=== PATIENT | male | born 1935 | race Caucasian/White ===

== ENCOUNTER 2017-12-01 19:00 | Inpatient (IN) ==
--- NOTE | 2017-12-01 19:11 | Emergency Department Note ---
Disposition Clinical Impression: Elevated troponin, Acute kidney injury Hypertension Qualifiers: Hypertension type: essential hypertension Qualified Code(s): I10 - Essential ( primary) hypertension Disposition: Admitted As Inpatient Condition: Fair General Adult HPI - General Stated complaint: hypertension Time Seen by Provider: 12/01/17 19:03 Source: patient, EMS Limitations: language barrier - History of Present Illness Pain Scale: 0 - Related Data Home Medications Medication Instructions Recorded Confirmed Aspirin Enteric Coated [Aspirin EC] 81 mg PO DAILY 12/01/17 12/01/17 Atorvastatin [Lipitor] 40 mg PO HS 12/01/17 12/01/17 Benzonatate [Tessalon] 100 mg PO TID PRN 12/01/17 12/01/17 Cholecalciferol (D-3) [Vitamin D] 3,000 unit PO DAILY 12/01/17 12/01/17 Clopidogrel [Plavix] 75 mg PO DAILY 12/01/17 12/01/17 Diclofenac Sodium [Voltaren] 4 gm TP BID PRN 12/01/17 12/01/17 Duloxetine HCl [Cymbalta] 60 mg PO DAILY 12/01/17 12/01/17 Ferrous Sulfate 325 mg PO DAILY 12/01/17 12/01/17 Gabapentin [Neurontin] 400 mg PO BID 12/01/17 12/01/17 Hydrocortisone Rectal CRM 1 appl RC BID PRN 12/01/17 12/01/17 [Proctosol-HC] Lisinopril [Zestril] 10 mg PO HS 12/01/17 12/01/17 Loratadine [Claritin] 10 mg PO DAILY 12/01/17 12/01/17 Magnesium Hydroxide [Milk of 2,400 mg PO AD 12/01/17 12/01/17 Magnesia] Magnesium Oxide [Mag-Ox] 800 mg PO BID 12/01/17 12/01/17 Melatonin [Melatin] 9 mg PO HS 12/01/17 12/01/17 Memantine HCl 10 mg PO BID 12/01/17 12/01/17 Metformin HCl [Metformin HCl ER] 500 mg PO DAILY 12/01/17 12/01/17 Metoprolol [Lopressor] 25 mg PO BID 12/01/17 12/01/17 Miconazole Nitrate [Aloe [place]] 1 appl TP DAILY PRN 12/01/17 12/01/17 Multivitamin-Min/Iron/FA/Vit K 1 each PO DAILY 12/01/17 12/01/17 [Multi-Day Plus Minerals Tablet] OxyCODONE Immed Rel [Roxicodone 5 5 mg PO DAILY PRN 12/01/17 12/01/17 MG] Pantoprazole Sodium [Protonix] 40 mg PO QPM 12/01/17 12/01/17 Sennosides/Docusate Sodium [Senna 2 each PO BID 12/01/17 12/01/17 Plus] Sod Chloride/B-6/Zinc Acet/Ca 5 - 8 spray IR DAILY PRN 12/01/17 12/01/17 [Wound Cleanser] Vitamin E/Aloe Vera [Wound Gel 1 appl TP DAILY PRN 12/01/17 12/01/17 Dressing] Witch Vanesa [Preparation H] 1 each TP DAILY 12/01/17 12/01/17 hydroCHLOROthiazide 12.5 mg PO DAILY 12/01/17 12/01/17 [Hydrochlorothiazide] Allergies Allergy/AdvReac Type Severity Reaction Status Date / Time No Known Allergies Allergy Verified 12/01/17 20:33 Past Medical History - Past Medical History Medical history: Reports: arthritis, DVT, diabetes, GERD, hyperlipidemia, hypertension Psychiatric history: Reports: no psych history - Social History Smoking Status: Never smoker Smokeless Tobacco Status: No Alcohol use: Reports: none Drug use: Reports: none Physical Exam - General Limitations: language barrier General appearance: alert, in no apparent distress Course Vital Signs Temperature 98.0 F 12/01/17 19:04 Pulse Rate 89 12/01/17 19:04 Respiratory Rate 18 12/01/17 19:04 Blood Pressure 185/107 12/01/17 19:04 O2 Sat by Pulse Oximetry 99 12/01/17 19:04 Temperature 98.5 F 12/02/17 19:26 Pulse Rate 94 12/02/17 19:26 Respiratory Rate 16 12/02/17 19:26 Blood Pressure 152/94 12/02/17 19:26 O2 Sat by Pulse Oximetry 96 12/02/17 19:26 Oxygen Delivery Oxygen Delivery Nasal Cannula Medical Decision Making - Lab Data Result diagrams: 12/02/17 03:43 12/02/17 03:43 Lab Results 12/01/17 12/01/17 12/01/17 Range/Units 21:30 21:30 21:37 WBC 9.0 (4.3-11.1) K/mcL RBC 5.24 (4.19-5.50) M/mcL Hgb 15.8 (12.9-16.9) g/dL Hct 46.6 (37.5-50.1) % MCV 88.9 (83.0-100.0) fL MCH 30.2 (28.0-33.3) pg MCHC 33.9 (31.6-35.5) g/dL RDW 14.7 H (11.5-14.5) % Plt Count 218 (140-400) K/mcL MPV 11.4 (9.4-12.4) fL Immature Gran % 0.3 (0-4) % Seg Neutrophils % 75.3 % Lymphocytes % 14.3 % Monocytes % 9.6 % Eosinophils % 0.1 % Basophils % 0.4 % Neutrophils # 6.8 (1.6-8.9) K/mcL Lymphocytes # 1.3 (0.6-4.6) K/mcL Monocytes # 0.9 (0.0-1.3) K/mcL Eosinophils # 0.0 (0.0-0.6) K/mcL Basophils # 0.0 (0.0-0.2) K/mcL PT 12.3 H (9.4-12.1) Seconds INR 1.1 APTT 31.6 (26.0-36.0) Seconds Sodium 138 (136-145) mEq/L Potassium 3.9 (3.5-5.1) mEq/L Chloride 101 (98-107) mEq/L Carbon Dioxide 27 (23-29) mEq/L BUN 21 (8-23) mg/dL Creatinine 1.02 (0.70-1.30) mg/dL Est GFR ( Amer) > 60 (> 60) Est GFR (Non-Af Amer) > 60 (> 60) BUN/Creatinine Ratio 21 (6-26) Glucose 201 H (70-105) mg/dL Calculated Osmolality 295 (280-300) Calcium 9.8 (8.6-10.3) mg/dL Troponin I 0.15 H* (< 0.04) ng/mL Attestation Statement - Attestation Attestation: I examined this patient and my medical decision-making was reviewed with the PROPOSAL COORDINATOR/PA/Advanced Practice Nurse/Resident Physician. I agree with the documented findings, disposition and treatment plan as described except to the extent set forth below. I did see the patient has spoke with him and examined him and did speak with the doctor at the [facility]. The patient is sent over because he had a echocardiogram this morning and his Lopressor was stopped and the patient became tachycardic and when he was seen at the [facility] he had chest discomfort so a troponin was done which came back elevated and the patient was sent here. He currently denies any chest pain or discomfort, shortness of breath or sweating. Patient will be admitted for further evaluation of the elevated troponin but this is likely a type II [place]. The patient will be watched closely on the account executive software sales. 1910
[2017-12-01] MEDS ORDERED: Aspirin 81 MG TAB.CHEW PO ONE (20:11)
--- NOTE | 2017-12-01 20:46 | Emergency Department Note ---
Disposition Clinical Impression: Elevated troponin, Acute kidney injury Hypertension Qualifiers: Hypertension type: unspecified Qualified Code(s): I10 - Essential (primary) hypertension Disposition: Admitted As Inpatient Condition: Fair Time of Disposition: 22:31 General Adult HPI - General Chief complaint: ED Chest Pain Stated complaint: hypertension Time Seen by Provider: 12/01/17 19:03 Source: patient, EMS Mode of arrival: EMS Limitations: language barrier Nursing Notes Reviewed: Yes Vital Signs Reviewed: Yes - History of Present Illness HPI Narrative: Patient is an 82-year-old male with a past medical history of DVT, diabetes, GERD, HLD, and hypertension patient was undergoing a echocardiogram at the urgent care today and due to his elevated heart rate he was escorted to the urgent care. According to his records the patient was told not to take any of his home medications before going to his echo today. He notified the that he has A. fib was pulse was found to be in the 120s. Blood pressure was also elevated. The patient was denying any symptoms at that time. His blood pressure was 150/101. The patient was found to have a troponin of 0.203 therefore he was transferred to [place] [facility]. On arrival the patient is in no acute distress at this time is only concerns are that he has had a cough over the past 5 days which he states has been non-productive. Pain Scale: 0 - Related Data Home Medications Medication Instructions Recorded Confirmed Aspirin Enteric Coated [Aspirin EC] 81 mg PO DAILY 12/01/17 12/01/17 Atorvastatin [Lipitor] 40 mg PO HS 12/01/17 12/01/17 Benzonatate [Tessalon] 100 mg PO TID PRN 12/01/17 12/01/17 Cholecalciferol (D-3) [Vitamin D] 3,000 unit PO DAILY 12/01/17 12/01/17 Clopidogrel [Plavix] 75 mg PO DAILY 12/01/17 12/01/17 Diclofenac Sodium [Voltaren] 4 gm TP BID PRN 12/01/17 12/01/17 Duloxetine HCl [Cymbalta] 60 mg PO DAILY 12/01/17 12/01/17 Ferrous Sulfate 325 mg PO DAILY 12/01/17 12/01/17 Gabapentin [Neurontin] 400 mg PO BID 12/01/17 12/01/17 Hydrocortisone Rectal CRM 1 appl RC BID PRN 12/01/17 12/01/17 [Proctosol-HC] Lisinopril [Zestril] 10 mg PO HS 12/01/17 12/01/17 Loratadine [Claritin] 10 mg PO DAILY 12/01/17 12/01/17 Magnesium Hydroxide [Milk of 2,400 mg PO AD 12/01/17 12/01/17 Magnesia] Magnesium Oxide [Mag-Ox] 800 mg PO BID 12/01/17 12/01/17 Melatonin [Melatin] 9 mg PO HS 12/01/17 12/01/17 Memantine HCl 10 mg PO BID 12/01/17 12/01/17 Metformin HCl [Metformin HCl ER] 500 mg PO DAILY 12/01/17 12/01/17 Metoprolol [Lopressor] 25 mg PO BID 12/01/17 12/01/17 Miconazole Nitrate [Aloe [place]] 1 appl TP DAILY PRN 12/01/17 12/01/17 Multivitamin-Min/Iron/FA/Vit K 1 each PO DAILY 12/01/17 12/01/17 [Multi-Day Plus Minerals Tablet] OxyCODONE Immed Rel [Roxicodone 5 5 mg PO DAILY PRN 12/01/17 12/01/17 MG] Pantoprazole Sodium [Protonix] 40 mg PO QPM 12/01/17 12/01/17 Sennosides/Docusate Sodium [Senna 2 each PO BID 12/01/17 12/01/17 Plus] Sod Chloride/B-6/Zinc Acet/Ca 5 - 8 spray IR DAILY PRN 12/01/17 12/01/17 [Wound Cleanser] Vitamin E/Aloe Vera [Wound Gel 1 appl TP DAILY PRN 12/01/17 12/01/17 Dressing] Witch Vanesa [Preparation H] 1 each TP DAILY 12/01/17 12/01/17 hydroCHLOROthiazide 12.5 mg PO DAILY 12/01/17 12/01/17 [Hydrochlorothiazide] Allergies Allergy/AdvReac Type Severity Reaction Status Date / Time No Known Allergies Allergy Verified 12/01/17 20:33 All systems ED: reviewed and negative except as stated. Review of Systems: As Per HPI Cardiovascular: Denies: chest pain, palpitations, dyspnea on exertion Respiratory: Reports: cough. Denies: dyspnea, wheezes Gastrointestinal: Denies: nausea, vomiting Musculoskeletal: Denies: back pain Past Medical History - Past Medical History Attestation: Yes The following information was validated with the patient. Medical history: Reports: arthritis, DVT, diabetes, GERD, hyperlipidemia, hypertension Psychiatric history: Reports: no psych history - Social History Smoking Status: Never smoker Smokeless Tobacco Status: No Alcohol use: Reports: none Drug use: Reports: none Physical Exam CONSTITUTIONAL: Well-appearing; well-nourished; A&O X 3, in no apparent distress. Blood pressure is 150/110's. Normal rate. HEAD: Normocephalic; atraumatic EYES: PERRL, no scleral icterus NOSE: The nose is normal in appearance without rhinorrhea NECK: No JVD or distended neck veins RESP: Normal chest excursion with respiration; breath sounds clear and equal bilaterally; no wheezes, rhonchi, or rales CARD: Regular rhythm, without murmurs, rub or gallop ABD: Non-distended; non-tender, soft, without rigidity, rebound or guarding,no pulsatile mass CHEST: No pain with palpation SKIN: Normal for age and race; warm and dry without diaphoresis ; no apparent lesions EXTREMITIES: Pulses are 2 plus and equal times 4 extremities, no peripheral edema or calf muscle pain - General Limitations: language barrier General appearance: alert, in no apparent distress Course Course Narrative: The patient had lab work that was done at an outside facility. Troponin results were shown to be 0.203. CK was 638. AST was 73 and felt he was 70. The remainder of the patient's metabolic panel was within normal limits. Creatinine was 1.28 and BUN was 19. CBC was unremarkable for leukocytosis or anemia. The patient takes 12.5mg hydrochlorothiazide, 10 mg lisinopril QHS and is on clopidogrel. Given the patient's history of recent shortness of breath and cough we will also order a chest x-ray which was not done at the outside facility to rule out pneumonia. - Reevaluation(s) Reevaluation #1: The patient's repeat troponin drawn here was 0.15 which is improved from [facility] The patient was given 10mg of lisinopril for his blood pressure. Chest x-ray showed no acute process. Discussed the patient's case with the hospitalist on-call and he agrees to accept the patient. Time: 22:32 Vital Signs Temperature 98.0 F 12/01/17 19:04 Pulse Rate 89 12/01/17 19:04 Respiratory Rate 18 12/01/17 19:04 Blood Pressure 185/107 12/01/17 19:04 O2 Sat by Pulse Oximetry 99 12/01/17 19:04 Temperature 98.0 F 12/01/17 23:31 Pulse Rate 91 12/01/17 23:31 Respiratory Rate 14 12/01/17 23:31 Blood Pressure 159/101 12/01/17 23:31 O2 Sat by Pulse Oximetry 98 12/01/17 23:53 Oxygen Delivery Oxygen Delivery Nasal Cannula Medical Decision Making - Medical Records Medical records reviewed: Yes I reviewed the patient's medical records. - Lab Data Lab results reviewed: Yes I reviewed the patient's lab results. Result diagrams: 12/01/17 21:30 12/01/17 21:30 Lab Results 12/01/17 12/01/17 12/01/17 Range/Units 21:30 21:30 21:37 WBC 9.0 (4.3-11.1) K/mcL RBC 5.24 (4.19-5.50) M/mcL Hgb 15.8 (12.9-16.9) g/dL Hct 46.6 (37.5-50.1) % MCV 88.9 (83.0-100.0) fL MCH 30.2 (28.0-33.3) pg MCHC 33.9 (31.6-35.5) g/dL RDW 14.7 H (11.5-14.5) % Plt Count 218 (140-400) K/mcL MPV 11.4 (9.4-12.4) fL Immature Gran % 0.3 (0-4) % Seg Neutrophils % 75.3 % Lymphocytes % 14.3 % Monocytes % 9.6 % Eosinophils % 0.1 % Basophils % 0.4 % Neutrophils # 6.8 (1.6-8.9) K/mcL Lymphocytes # 1.3 (0.6-4.6) K/mcL Monocytes # 0.9 (0.0-1.3) K/mcL Eosinophils # 0.0 (0.0-0.6) K/mcL Basophils # 0.0 (0.0-0.2) K/mcL PT 12.3 H (9.4-12.1) Seconds INR 1.1 APTT 31.6 (26.0-36.0) Seconds Sodium 138 (136-145) mEq/L Potassium 3.9 (3.5-5.1) mEq/L Chloride 101 (98-107) mEq/L Carbon Dioxide 27 (23-29) mEq/L BUN 21 (8-23) mg/dL Creatinine 1.02 (0.70-1.30) mg/dL Est GFR ( Amer) > 60 (> 60) Est GFR (Non-Af Amer) > 60 (> 60) BUN/Creatinine Ratio 21 (6-26) Glucose 201 H (70-105) mg/dL Calculated Osmolality 295 (280-300) Calcium 9.8 (8.6-10.3) mg/dL Troponin I 0.15 H* (< 0.04) ng/mL - Radiology Data Radiology results reviewed: Yes I reviewed the patient's radiology results. Chest X-Ray 12/01/17 20:10 IMPRESSION: 1. No acute cardiopulmonary disease. D/ / Yoni Camarena MD / Yoni Camarena MD Interpreting Provider: Yoni Camarena MD - EKG Data EKG #1 EKG attestation: Yes I reviewed and interpreted this EKG. EKG results narrative: The patient's EKG shows sinus rhythm with first-degree AV block with occasional PVCs at a rate of 96 bpm. TX is prolonged at 245, QRS is 127 which is a normal limits, QT is 394 and QTc is 447 and these are within normal limits. Patient has no ST elevations, ST depressions or Q waves present. He does have some nonspecific ST changes in the lateral leads. No signs of ischemia.
[2017-12-01 21:55] LABS: Basophils % 0.4 %; Eosinophils % 0.1 %; Hematocrit 46.6 % (37.5-50.1); Hemoglobin 15.8 g/dL (12.9-16.9); Immature Granulocytes % 0.3 % (0-4); Lymphocytes # 1.3 K/mcL (0.6-4.6); Lymphocytes % 14.3 %; Mean Corpuscular HGB Conc 33.9 g/dL (31.6-35.5); Mean Corpuscular Hemoglobin 30.2 pg (28.0-33.3); Mean Corpuscular Volume 88.9 fL (83.0-100.0); Mean Platelet Volume 11.4 fL (9.4-12.4); Monocytes # 0.9 K/mcL (0.0-1.3); Monocytes % 9.6 %; Neutrophils # 6.8 K/mcL (1.6-8.9); Platelet Count 218 K/mcL (140-400); Red Blood Count 5.24 M/mcL (4.19-5.50); Red Cell Distribution Width 14.7 % (11.5-14.5); Segmented Neutrophils % 75.3 %
[2017-12-01 22:12] LABS: BUN/Creatinine Ratio 21 (6-26); Blood Urea Nitrogen 21 mg/dL (8-23); Calcium 9.8 mg/dL (8.6-10.3); Carbon Dioxide 27 mEq/L (23-29); Chloride 101 mEq/L (98-107); Glucose 201 mg/dL (70-105); Osmolality,Calculated 295 (280-300); Potassium 3.9 mEq/L (3.5-5.1); Sodium 138 mEq/L (136-145); eGFR For African Americans > 60 (> 60); eGFR For Non-African Americans > 60 (> 60)
[2017-12-01 22:14] LABS: Troponin I 0.15 ng/mL (< 0.04)
[2017-12-01] MEDS ORDERED: *HR* HYDROcodone/Acet 5/325 mg TABLET PO PRN (22:44)
[2017-12-01] MEDS ORDERED: Acetaminophen 325 MG TABLET PO PRN (22:44)
[2017-12-01] MEDS ORDERED: Ondansetron 4 MG/2 ML VIAL IVP PRN (22:44)
[2017-12-01] MEDS ORDERED: *HR* Promethazine 25 MG/ML VIAL IVP PRN (22:44)
[2017-12-01] MEDS ORDERED: Naloxone 0.4 MG/ML INJ IVP PRN (22:44)
[2017-12-01 22:45] LABS: INR 1.1; Prothrombin Time 12.3 Seconds (9.4-12.1)
[2017-12-01 22:48] LABS: Activated Partial Thrombo Time 31.6 Seconds (26.0-36.0)
--- NOTE | 2017-12-01 23:54 | Internal Med History&Physical ---
Date of Encounter: 12/01/17 Time of Encounter: 23:45 Internal Medicine - H&P: HPI Chief complaint: Generalized weakness and SOB Admitted From: Emergency Dept Plans for Post Hospital Care: Home History of present illness: Mr. Moon is a 82 year old male with known past medical history of DVT, diabetes, GERD, HLD, hypertension and stroke with b/l le weakness who does use cane / walker to get around, lives by himself pt presented to [facility] urgent care today with generalized weakness and ELMORE. Pt did mention from last 2-3 weeks he has been falling so frequently, so his home visiting nurse suggested him to go to urgent care center for further eval. The patient was found to have a troponin of 0.203 therefore he was transferred to [place] [facility] for further eval. Pt denied any CP. He does c/o ELMORE but denied any SOB at resting. Denied any PND and Orthopnea. Past Med Surg Social Fam HX - Past Medical History Medical history: arthritis, atrial fibrillation, DVT, diabetes, GERD, hyperlipidemia, hypertension Psychiatric history: no psych history - Social History Smoking Status: Never smoker Smokeless Tobacco Status: No Alcohol use: none Drug use: none - Family History Father Living Status: Hx Family Cancer: Yes Mother Living Status: Hx Family Cancer: Yes Internal Medicine - H&P: Meds Aspirin Enteric Coated [Aspirin EC] 81 mg PO DAILY 12/01/17 [History] Atorvastatin [Lipitor] 40 mg PO HS 12/01/17 [History] Benzonatate [Tessalon] 100 mg PO TID PRN 12/01/17 [History] Cholecalciferol (D-3) [Vitamin D] 3,000 unit PO DAILY 12/01/17 [History] Clopidogrel [Plavix] 75 mg PO DAILY 12/01/17 [History] Diclofenac Sodium [Voltaren] 4 gm TP BID PRN 12/01/17 [History] Duloxetine HCl [Cymbalta] 60 mg PO DAILY 12/01/17 [History] Ferrous Sulfate 325 mg PO DAILY 12/01/17 [History] Gabapentin [Neurontin] 400 mg PO BID 12/01/17 [History] Hydrocortisone Rectal CRM [Proctosol-HC] 1 appl RC BID PRN 12/01/17 [History] Lisinopril [Zestril] 10 mg PO HS 12/01/17 [History] Loratadine [Claritin] 10 mg PO DAILY 12/01/17 [History] Magnesium Hydroxide [Milk of Magnesia] 2,400 mg PO AD 12/01/17 [History] Magnesium Oxide [Mag-Ox] 800 mg PO BID 12/01/17 [History] Melatonin [Melatin] 9 mg PO HS 12/01/17 [History] Memantine HCl 10 mg PO BID 12/01/17 [History] Metformin HCl [Metformin HCl ER] 500 mg PO DAILY 12/01/17 [History] Metoprolol [Lopressor] 25 mg PO BID 12/01/17 [History] Miconazole Nitrate [Aloe [place]] 1 appl TP DAILY PRN 12/01/17 [History] Multivitamin-Min/Iron/FA/Vit K [Multi-Day Plus Minerals Tablet] 1 each PO DAILY 12/01/17 [History] OxyCODONE Immed Rel [Roxicodone 5 MG] 5 mg PO DAILY PRN 12/01/17 [History] Pantoprazole Sodium [Protonix] 40 mg PO QPM 12/01/17 [History] Sennosides/Docusate Sodium [Senna Plus] 2 each PO BID 12/01/17 [History] Sod Chloride/B-6/Zinc Acet/Ca [Wound Cleanser] 5 - 8 spray IR DAILY PRN [History] Vitamin E/Aloe Vera [Wound Gel Dressing] 1 appl TP DAILY PRN 12/01/17 [History] Witmitesh Vanesa [Preparation H] 1 each TP DAILY 12/01/17 [History] hydroCHLOROthiazide [Hydrochlorothiazide] 12.5 mg PO DAILY 12/01/17 [History] 3 Allergy/AdvReac Type Severity Reaction Status Date / Time No Known Allergies Allergy Verified 12/01/17 20:33 All Systems PM: A 10-system review of systems was performed and is negative for pertinent findings except as documented above in the HPI. Review of systems: All the systems are reviewed everything is benign except the systems and symptoms I mentioned in the history of present illness - Constitutional Vitals: Temp Pulse Resp BP Pulse Ox 98.0 F 91 14 159/101 99 12/01/17 23:31 12/01/17 23:31 12/01/17 23:31 12/01/17 23:31 12/01/17 23:31 General appearance: Present: cooperative, A&O X 3, no acute distress, answers questions appropriately - Head Head exam: Present: atraumatic, normal inspection - Neck Neck exam general surgery: Present: supple - Respiratory Respiratory exam: Present: decreased breath sounds. Absent: rales, respiratory distress, rhonchi, wheezes - Cardiovascular Cardiovascular exam: Present: RRR, +S1, +S2. Absent: systolic murmur, tachycardia - GI/Abdominal GI/Abdominal exam: Present: normal bowel sounds, soft. Absent: rebound, rigid, tenderness - Extremities Exam Extremities exam: Absent: calf tenderness, pedal edema, tenderness - Back Exam Back exam: Absent: CVA tenderness (L), CVA tenderness (R) - Neurological Exam Neurological exam: Present: alert, oriented X3 - Psychiatric Psychiatric exam: Present: normal affect, normal mood - Skin Skin exam: Absent: rash Internal Med - H&P Results - Labs CBC & Chem 7: 12/01/17 21:30 12/01/17 21:30 - Assessment and plan (1) NSTEMI (non-ST elevated myocardial infarction) Current Visit: Yes Status: Acute Assessment and plan: Admit the pt into Tele Reviewed his EKG - Sinus rhythm noticed, with first degree AV block NC-245,. NO ST T changes noticed His initial Trop 0.20 at local urgent care. Now it started trending down - @ 0.15 mostly demand ischemica pt is denied any CP Little concerned for CHF exacerbation will get 2 D Echo in AM Resumed home med ASA, Plavix and BB No need of anti coag now since his Trop trending down and pt is asymptomatic (2) ELMORE (dyspnea on exertion) Current Visit: Yes Status: Acute Assessment and plan: Concerning for mild CHF exacerbation will check BNP Will obtain 2 D Echo in am Will start low dose of lasix 20mg IV Daily (3) CAD (coronary artery disease) Current Visit: Yes Status: Chronic Assessment and plan: resumed all home meds Qualifiers: Coronary Disease-Associated Artery/Lesion type: [place] artery [place] vs. transplanted heart: [place] heart Associated angina: without angina Qualified Code(s): I25.10 - Atherosclerotic heart disease of [place] coronary artery without angina pectoris (4) H/O: CVA (cerebrovascular accident) Current Visit: Yes Status: Acute Assessment and plan: resumed home meds ASA + Plavix + Statin (5) DM2 (diabetes mellitus, type 2) Current Visit: Yes Status: Acute Assessment and plan: held PO meds placed him on ISS Qualifiers: Diabetes mellitus group home insulin use: without group home use Diabetes mellitus complication status: without complication Qualified Code(s): E11.9 - Type 2 diabetes mellitus without complications (6) Hypertension Current Visit: Yes Status: Acute Assessment and plan: Fairly controlled resumed all home meds will give hydralazine IV PRN Qualifiers: Hypertension type: essential hypertension Qualified Code(s): I10 - Essential (primary) hypertension (7) GERD (gastroesophageal reflux disease) Current Visit: Yes Status: Acute Assessment and plan: on PPI Qualifiers: Esophagitis presence: without esophagitis Qualified Code(s): K21.9 - Gastro -esophageal reflux disease without esophagitis (8) Physical deconditioning Current Visit: Yes Status: Acute Assessment and plan: PT / OT eval did mention frequent falls may need SNF placement for short term rehab - Time Spent With Patient Total time spent is greater than 50% in coordination of care (as documented) at patient's floor/unit and/or counseling patient:
[2017-12-02] MEDS ORDERED: Hydrocortisone Rectal 2.5% CRM 28 GM TUBE RC PRN (00:19)
[2017-12-02] MEDS ORDERED: Benzonatate 100 MG CAPSULE PO PRN (00:19)
[2017-12-02] MEDS ORDERED: Diclofenac Sodium [Voltaren] TP PRN (00:19)
[2017-12-02] MEDS ORDERED: Miconazole 2% ointment 114 GM TUBE TP PRN (00:25)
[2017-12-02] MEDS ORDERED: MOM Conc 10 ML UD.LIQ PO PRN (00:30)
[2017-12-02] MEDS: Furosemide 20 MG/2 ML VIAL IVP SCH ×2 (00:48→08:18)
[2017-12-02 05:01] LABS: Basophils % 0.5 %; Eosinophils % 0.1 %; Hematocrit 45.9 % (37.5-50.1); Hemoglobin 15.4 g/dL (12.9-16.9); Immature Granulocytes % 0.4 % (0-4); Lymphocytes # 1.6 K/mcL (0.6-4.6); Lymphocytes % 20.8 %; Mean Corpuscular HGB Conc 33.6 g/dL (31.6-35.5); Mean Corpuscular Hemoglobin 29.8 pg (28.0-33.3); Mean Corpuscular Volume 88.8 fL (83.0-100.0); Mean Platelet Volume 11.3 fL (9.4-12.4); Monocytes % 12.6 %; Neutrophils # 5.2 K/mcL (1.6-8.9); Platelet Count 190 K/mcL (140-400); Red Blood Count 5.17 M/mcL (4.19-5.50); Red Cell Distribution Width 14.9 % (11.5-14.5); Segmented Neutrophils % 65.6 %
[2017-12-02 05:12] LABS: BUN/Creatinine Ratio 21 (6-26); Blood Urea Nitrogen 21 mg/dL (8-23); Calcium 9.8 mg/dL (8.6-10.3); Carbon Dioxide 28 mEq/L (23-29); Chloride 100 mEq/L (98-107); Cholesterol 185 mg/dL (< 200); Glucose 169 mg/dL (70-105); HDL Cholesterol 31 mg/dL (40-59); LDL Cholesterol,Calculated 126 mg/dL (0-99); Magnesium 1.5 mg/dL (1.6-2.6); Osmolality,Calculated 297 (280-300); Potassium 3.4 mEq/L (3.5-5.1); Sodium 140 mEq/L (136-145); Triglycerides 141 mg/dL (< 150); eGFR For African Americans > 60 (> 60); eGFR For Non-African Americans > 60 (> 60)
[2017-12-02 05:15] LABS: Troponin I 0.13 ng/mL (< 0.04)
[2017-12-02] MEDS: *HR* Heparin 5,000 UNIT/ML VIAL SQ SCH ×2 (05:58→18:00)
[2017-12-02] MEDS: Sennosides/Docusate Sodium TABLET PO SCH ×2 (08:17→22:12)
[2017-12-02] MEDS: Multivit/Ca/Min/Fe/FA 1 TAB TABLET PO SCH (08:18)
[2017-12-02] MEDS: Loratadine 10 MG TABLET PO SCH (08:18)
[2017-12-02] MEDS: Magnesium Oxide 400 MG TABLET PO SCH ×2 (08:18→22:12)
[2017-12-02] MEDS: Aspirin Enteric Coated 81 MG Tablet PO SCH (08:18)
[2017-12-02] MEDS: Cholecalciferol (D-3) 1,000 UNIT TABLET PO SCH (08:18)
[2017-12-02] MEDS: Gabapentin 400 MG CAPSULE PO SCH ×2 (08:18→22:11)
--- NOTE | 2017-12-02 12:14 | Cardiology Consult Note ---
Addendum entered and electronically signed by Tom Mckeon CNP 12/02/17 13:10: Discussed with Dr. Monge. No prior ischemic evaluation with multiple risk factors and mild troponin. TTE today. Plan for stress test tomorrow. Original Note: <Tom Mckeon - Last Filed: 12/02/17 12:22> Date of Encounter: 12/02/17 Time of Encounter: 12:14 Assessment and Plan (1) Elevated troponin Current Visit: Yes Status: Acute Troponin 0.203 [facility], then 0.15, 0.13, 0.09 at [facility] in setting of A-Fib RVR and accelerated HTN. Suspect demand ischemia, nondiagnostic for ACS. Pt denies chest pain. Does endorse exertional dyspnea that has worsened recently. Chief complaints are weakness, recent frequent falls. TTE to evaluate structure and function. Further recommendations pending TTE results. Continue ASA, Statin, BB. (2) PAF (paroxysmal atrial fibrillation) Current Visit: Yes Status: Resolved Known hx of PAF. EKG yesterday evening SR. Now A-Fib, but currently rate controlled. EKG obtained at [facility] yesterday A-Fib RVR HR 120, but pt reports he had held all his meds, as instructed prior to echo. BB resumed. Uptitrate as necessary. [id number] is 5 (Age, HTN, CVA). High CVA risk. Currently on ASA and Plavix. Suspect he is not on full anticoagulation due to high falls risk--reported multiple falls in recent weeks. However, this is not confirmed. Currently given his frequent falls, would recommend continuing ASA and Plavix only. Pt aware of increased CVA risk. (3) Hypertension Current Visit: Yes Status: Acute BP was 185/107 on presentation, now better controlled. Continue current antihypertensives and adjust as necessary. Qualifiers: Hypertension type: essential hypertension Qualified Code(s): I10 - Essential (primary) hypertension Discussion w patient/family: The assessment and plan as outlined above was discussed with the patient and/or family members who expressed understanding and agreement. All questions were answered. Thank you for involving us in the care of your patient. Please call with any questions. I will discuss all the above with Dr. Monge and make changes as necessary. History of Present Illness Consult date: 12/02/17 Requesting physician: Najma Sylvester Consult reason: elevated troponin Chief complaint: fatigue, weakness History of present illness: Mr. Moon is a 82 year old male with known PMH of DVT, diabetes, GERD, HLD, HTN , A-Fib, CVA with b/l le weakness who does use cane/walker, presented to [facility] for outpt [facility] yesterday and was sent for further evaluation due to being A-Fib RVR. Known hx of A-Fib and pt states he was told to hold all meds for his testing. Pt reports over the last 2-3 weeks he has been falling frequently, increased weakness, dyspnea. The patient was found to have a troponin of 0.203 therefore he was transferred to [place] ER for further eval. Pt denied any CP. He does c/o ELMORE but denied any SOB at resting. Denied any PND and Orthopnea. Troponin at [facility] 0.15, 0.13, 0.09. BP was 185/107 on admission. Pt denies hx of CAD or PCI. 12 hr tele AVG HR 96, A-Fib. Past Med Surg Social Fam HX - Past Medical History Medical history: arthritis, atrial fibrillation, DVT, diabetes, GERD, hyperlipidemia, hypertension Psychiatric history: no psych history - Social History Smoking Status: Never smoker Smokeless Tobacco Status: No Alcohol use: none Drug use: none - Family History Father Living Status: Hx Family Cancer: Yes Mother Living Status: Hx Family Cancer: Yes Medications and Allergies Aspirin Enteric Coated [Aspirin EC] 81 mg PO DAILY 12/01/17 [History] Atorvastatin [Lipitor] 40 mg PO HS 12/01/17 [History] Benzonatate [Tessalon] 100 mg PO TID PRN 12/01/17 [History] Cholecalciferol (D-3) [Vitamin D] 3,000 unit PO DAILY 12/01/17 [History] Clopidogrel [Plavix] 75 mg PO DAILY 12/01/17 [History] Diclofenac Sodium [Voltaren] 4 gm TP BID PRN 12/01/17 [History] Duloxetine HCl [Cymbalta] 60 mg PO DAILY 12/01/17 [History] Ferrous Sulfate 325 mg PO DAILY 12/01/17 [History] Gabapentin [Neurontin] 400 mg PO BID 12/01/17 [History] Hydrocortisone Rectal CRM [Proctosol-HC] 1 appl RC BID PRN 12/01/17 [History] Lisinopril [Zestril] 10 mg PO HS 12/01/17 [History] Loratadine [Claritin] 10 mg PO DAILY 12/01/17 [History] Magnesium Hydroxide [Milk of Magnesia] 2,400 mg PO AD 12/01/17 [History] Magnesium Oxide [Mag-Ox] 800 mg PO BID 12/01/17 [History] Melatonin [Melatin] 9 mg PO HS 12/01/17 [History] Memantine HCl 10 mg PO BID 12/01/17 [History] Metformin HCl [Metformin HCl ER] 500 mg PO DAILY 12/01/17 [History] Metoprolol [Lopressor] 25 mg PO BID 12/01/17 [History] Miconazole Nitrate [Aloe [place]] 1 appl TP DAILY PRN 12/01/17 [History] Multivitamin-Min/Iron/FA/Vit K [Multi-Day Plus Minerals Tablet] 1 each PO DAILY 12/01/17 [History] OxyCODONE Immed Rel [Roxicodone 5 MG] 5 mg PO DAILY PRN 12/01/17 [History] Pantoprazole Sodium [Protonix] 40 mg PO QPM 12/01/17 [History] Sennosides/Docusate Sodium [Senna Plus] 2 each PO BID 12/01/17 [History] Sod Chloride/B-6/Zinc Acet/Ca [Wound Cleanser] 5 - 8 spray IR DAILY PRN [History] Vitamin E/Aloe Vera [Wound Gel Dressing] 1 appl TP DAILY PRN 12/01/17 [History] Witch Vanesa [Preparation H] 1 each TP DAILY 12/01/17 [History] hydroCHLOROthiazide [Hydrochlorothiazide] 12.5 mg PO DAILY 12/01/17 [History] 3 Allergy/AdvReac Type Severity Reaction Status Date / Time No Known Allergies Allergy Verified 12/01/17 20:33 All Systems Review: The remainder of the systems were reviewed and are negative - Constitutional Constitutional: fatigue, weakness - Cardiovascular Cardiovascular: as per HPI, dyspnea on exertion - Respiratory Respiratory: dyspnea Physical Examination Vital Signs, Last 4 Hours Temp Pulse Resp BP Pulse Ox 12/02/17 11:38 97.6 F 88 16 131/79 97 Vital Signs Temp Pulse Resp BP Pulse Ox 12/02/17 11:38 97.6 F 88 16 131/79 97 12/02/17 07:44 98.5 F 96 14 125/71 99 12/02/17 03:54 98.1 F 94 14 173/81 96 12/01/17 23:53 98 12/01/17 23:31 98.0 F 91 14 159/101 99 12/01/17 23:09 94 16 116/84 98 12/01/17 21:46 98 16 146/113 98 12/01/17 19:04 98.0 F 89 18 185/107 99 Intake and Output 12/01/17 12/02/17 12/02/17 23:59 07:59 15:59 Output Total 400 / 400 500 / 500 Balance -400 / -400 -500 / -500 Output: Urine 400 / 400 500 / 500 Other: Stool Size Moderate Small Stool Consistency soft soft Stool Characteristics Normal for Patient Stool Color Brown Brown # Voids 1 # Bowel Movements 1 1 Weight 101.1 kg General: Conversant, No Apparent Distress HEENT: Atraumatic, Normocephaly, Mucus Membranes Moist Neck: No JVD, Normal carotid pulses Cardiac: Other (irregularly irregular) Lungs: Normal Breath Sounds, No Wheeze, Rales, Rhonchi Neuro: Alert and responsive, No focal deficits noted Abdomen: Soft, Non-Tender Skin: No rashes noted on visualized skin Musculoskeletal: No Chest Wall Tenderness Extremities: No Clubbing, No Cyanosis, No Edema, Normal Pulses Results 12/02/17 03:43 12/02/17 03:43 Lab Results 12/02/17 12/02/17 12/02/17 03:43 03:43 09:22 WBC 7.9 Hgb 15.4 Hct 45.9 Plt Count 190 Sodium 140 Potassium 3.4 L Chloride 100 Carbon Dioxide 28 BUN 21 Creatinine 0.98 Glucose 169 H Calcium 9.8 Magnesium 1.5 L Troponin I 0.13 H* 0.09 H* Short CBC 12/02/17 12/01/17 Range/Units 03:43 21:30 WBC 7.9 9.0 (4.3-11.1) K/mcL Hgb 15.4 15.8 (12.9-16.9) g/dL Hct 45.9 46.6 (37.5-50.1) % Plt Count 190 218 (140-400) K/mcL Neutrophils # 5.2 6.8 (1.6-8.9) K/mcL BMP 12/02/17 12/01/17 Range/Units 03:43 21:30 Sodium 140 138 (136-145) mEq/L Potassium 3.4 L 3.9 (3.5-5.1) mEq/L Chloride 100 101 (98-107) mEq/L Carbon Dioxide 28 27 (23-29) mEq/L BUN 21 21 (8-23) mg/dL Creatinine 0.98 1.02 (0.70-1.30) mg/dL Glucose 169 H 201 H (70-105) mg/dL Calcium 9.8 9.8 (8.6-10.3) mg/dL Cardiac Enzymes 12/02/17 12/02/17 12/01/17 Range/Units 09:22 03:43 21:30 Troponin I 0.09 H* 0.13 H* 0.15 H* (< 0.04) ng/mL Impressions Chest X-Ray 12/01/17 20:10 IMPRESSION: 1. No acute cardiopulmonary disease. D/ / Yoni Camarena MD / Yoni Camarena MD Interpreting Provider: Yoni Camarena MD Active Medications Acetaminophen (Tylenol) 650 mg PO Q6HR PRN PRN Reason: Mild Pain/Fever Stop: 06/02/18 22:45 Hydrocodone Bitart/Acetaminophen (Evans 5-325 Mg) 1 tab PO Q6HR PRN PRN Reason: Moderate Pain Stop: 06/02/18 22:45 Aspirin (Aspirin Ec) 81 mg PO DAILY OLAY[facility]A Stop: 06/03/18 09:01 Last Admin: 12/02/17 08:18 Dose: 81 mg Atorvastatin Calcium (Lipitor) 40 mg PO HS OLAYINKA Stop: 06/03/18 21:01 Benzonatate (Tessalon) 100 mg PO TID PRN PRN Reason: Cough Stop: 06/03/18 00:20 Clopidogrel Bisulfate (Plavix) 75 mg PO DAILY OLAYINKA Stop: 06/03/18 09:01 Last Admin: 12/02/17 08:18 Dose: 75 mg Docusate Sodium (Colace) 100 mg PO BID PRN PRN Reason: Constipation Stop: 06/03/18 09:01 Duloxetine HCl (Cymbalta) 60 mg PO DAILY [facility] Stop: 06/03/18 09:01 Last Admin: 12/02/17 08:17 Dose: 60 mg Ferrous Sulfate (Ferrous Sulfate) 325 mg PO DAILY OLAYINKA Stop: 06/03/18 09:01 Last Admin: 12/02/17 08:18 Dose: 325 mg Furosemide (Lasix) 20 mg IVP DAILY O[facility]A Stop: 06/03/18 00:46 Last Admin: 12/02/17 08:18 Dose: 20 mg Gabapentin (Neurontin) 400 mg PO BID O[facility]A Stop: 06/03/18 09:01 Last Admin: 12/02/17 08:18 Dose: 400 mg Heparin Sodium (Porcine) (Heparin) 5,000 unit SQ Q12HR OLAYINKA Stop: 06/03/18 06:01 Last Admin: 12/02/17 05:58 Dose: 5,000 unit Hydrocortisone (Proctosol-Hc) 1 appl RC BID PRN; Protocol PRN Reason: Hemorrhoids Stop: 06/03/18 00:20 Lisinopril (Zestril) 10 mg PO HS OLAYINKA PRN Reason: Protocol Stop: 06/03/18 21:01 Loratadine (Claritin) 10 mg PO DAILY OLAYINKA PRN Reason: Protocol Stop: 06/03/18 09:01 Last Admin: 12/02/17 08:18 Dose: 10 mg Magnesium Hydroxide (Milk Of Magnesia Conc) 10 ml PO HS PRN PRN Reason: CONSTIPATION Stop: 06/03/18 00:31 Magnesium Oxide (Mag-Ox) 800 mg PO BID OLAYINKA PRN Reason: Protocol Stop: 06/03/18 09:01 Last Admin: 12/02/17 08:18 Dose: 800 mg Melatonin (Melatonin) 9 mg PO HS [facility] Stop: 06/03/18 21:01 Memantine (Namenda) 10 mg PO BID [facility] Stop: 06/03/18 09:01 Last Admin: 12/02/17 08:17 Dose: 10 mg Metoprolol Tartrate (Lopressor) 25 mg PO BID [facility] Stop: 06/03/18 09:01 Last Admin: 12/02/17 08:18 Dose: 25 mg Miconazole (Aloe [place] Antifungal Ointment) 1 appl TP DAILY PRN PRN Reason: Skin Protection Stop: 06/03/18 00:26 Multivitamins/Calcium (Thera M Plus) 1 tab PO DAILY O[facility]A Stop: 06/03/18 09:01 Last Admin: 12/02/17 08:18 Dose: 1 tab Naloxone HCl (Narcan) 0.4 mg IVP Q2MIN PRN PRN Reason: SEE COMMENTS Stop: 06/02/18 22:45 Omeprazole (Prilosec) 20 mg PO QPM [facility] Stop: 06/03/18 18:01 Ondansetron HCl (Zofran) 4 mg IVP Q8HR PRN PRN Reason: Nausea And Vomiting Stop: 06/02/18 22:45 Pharmacy Profile Note (Patient Taking Own Medication) 1 each TP BID PRN PRN Reason: Pain Promethazine HCl (Phenergan) 12.5 mg IVP Q6HR PRN PRN Reason: Nausea And Vomiting Stop: 06/02/18 22:45 Senna/Docusate Sodium (Senna Plus) 2 each PO BID OLAYINKA PRN Reason: Protocol Stop: 06/03/18 09:01 Last Admin: 12/02/17 08:17 Dose: 2 each Vitamin D (Vitamin D) 1,000 unit PO DAILY [facility] Stop: 06/03/18 09:01 Last Admin: 12/02/17 08:18 Dose: 1,000 unit - EKG Interpretation EKG results cardiology: personally reviewed (SR with first degree block), other (12 hr tele AVG HR 94, PAF) Consult Discharge Plan - Plan [facility]errals: [facility]Primary Care Provider[facility] - <Derek Monge - Last Filed: 12/02/17 16:02> Date of Encounter: 12/02/17 - Attending Attestation I have personally performed a face to face evaluation on this patient. I have reviewed and agree with the care plan. History and Exam by me shows: 82-year-old male with multiple cardiac risk factors previous CVA, atrial fibrillation found to be in A. fib with RVR currently better controlled. Mild elevation in troponins currently on the downtrend with complaints of dyspnea on exertion. Hypertensive urgency on arrival however better controlled at this time. No previous ischemic workup in the setting of multiple cardiac risk factors including diabetes. I feel it is reasonable to rule out ischemia with a stress test pending his echocardiogram. Assessment and Plan Discussion w patient/family: The assessment and plan as outlined above was discussed with the patient and/or family members who expressed understanding and agreement. All questions were answered. Thank you for involving us in the care of your patient. Please call with any questions. History of Present Illness History of present illness: Mr. Moon is a 82 year old male All Systems Review: The remainder of the systems were reviewed and are negative Physical Examination Vital Signs, Last 4 Hours Temp Pulse Resp BP Pulse Ox 12/02/17 15:35 97.6 F 93 18 161/84 98 Results 12/02/17 03:43 12/02/17 03:43 Lab Results 12/02/17 12/02/17 12/02/17 03:43 03:43 09:22 WBC 7.9 Hgb 15.4 Hct 45.9 Plt Count 190 Sodium 140 Potassium 3.4 L Chloride 100 Carbon Dioxide 28 BUN 21 Creatinine 0.98 Glucose 169 H Calcium 9.8 Magnesium 1.5 L Troponin I 0.13 H* 0.09 H*
--- NOTE | 2017-12-02 18:36 | Internal Med Progress Note ---
Date of Encounter: 12/02/17 Time of Encounter: 18:34 - Assessment and plan (1) Hypertension Current Visit: Yes Status: Acute Assessment and plan: Better controlled resumed all home meds hydralazine IV PRN Qualifiers: Hypertension type: essential hypertension Qualified Code(s): I10 - Essential (primary) hypertension (2) NSTEMI (non-ST elevated myocardial infarction) Current Visit: Yes Status: Acute Assessment and plan: Sinus rhythm with first degree AV block SC-245,. NO ST T changes noticed Known history of PAF His initial Trop 0.20 at local urgent care. trending down and then up to .29 likely demand ischemica pt continues to deny any CP CHF exacerbation 2 D Echo report pending Continue ASA, Plavix and BB Cardiology consult it and recommending continuing aspirin and Plavix. Patient aware of increased CVA risk per cardiology's note. Stress test scheduled in the a.m. nothing by mouth after midnight (3) H/O: CVA (cerebrovascular accident) Current Visit: Yes Status: Acute Assessment and plan: Continue ASA, Plavix, Statin (4) Physical deconditioning Current Visit: Yes Status: Acute Assessment and plan: PT / OT eval Fall risk, reports frequent falls, fall precautions possible SNF placement for short term rehab (5) CAD (coronary artery disease) Current Visit: Yes Status: Chronic Assessment and plan: resumed home meds Qualifiers: Coronary Disease-Associated Artery/Lesion type: [place] artery [place] vs. 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[employer] insulin use: without nursing home use Diabetes mellitus complication status: without complication Qualified Code(s): E11.9 - Type 2 diabetes mellitus without complications (7) GERD (gastroesophageal reflux disease) Current Visit: Yes Status: Acute Assessment and plan: Continue PPI Qualifiers: Esophagitis presence: without esophagitis Qualified Code(s): K21.9 - Gastro -esophageal reflux disease without esophagitis (8) ELMORE (dyspnea on exertion) Current Visit: Yes Status: Acute Assessment and plan: Concerning for mild CHF exacerbation 2 D Echo report pending Continue low dose of lasix 20mg IV Daily (9) Hypomagnesemia Current Visit: Yes Status: Acute Assessment and plan: replaced and recheck - Time Spent With Patient Total time spent is greater than 50% in coordination of care (as documented) at patient's floor/unit and/or counseling patient: - Subjective Interval history: Patient sitting up in bed in no distress. He is on O2 and denies any dyspnea. He stated he is aware of the plan for tomorrow for a stress test. He has no voiced complaints at this time. Discussed the plan of care and told him we would have more information once he had his stress test completed - Constitutional Vitals: Temp Pulse Resp BP Pulse Ox 97.6 F 93 18 161/84 98 12/02/17 15:35 12/02/17 15:35 12/02/17 15:35 12/02/17 15:35 12/02/17 15:35 General appearance: Present: cooperative, A&O X 3, pleasant, obese, answers questions appropriately - Head Head exam: Present: atraumatic, normocephalic - Eye Eye exam: Present: PERRL, conjuntiva pink, sclera anicteric Pupils: Present: PERRL - Neck Neck exam general surgery: Present: supple, trachea midline. Absent: lymphadenopathy - Respiratory Respiratory exam: Present: decreased breath sounds. Absent: accessory muscle use, rales, rhonchi, wheezes - Cardiovascular Cardiovascular exam: Present: RRR, +S1, +S2. Absent: diastolic murmur, gallop, rubs, systolic murmur - GI/Abdominal GI/Abdominal exam: Present: normal bowel sounds, soft, no peritoneal signs. Absent: distended, tenderness - Extremities Exam Extremities exam: Present: pedal edema, warm, radial pulses palpable and symmetrical. Absent: calf tenderness, cyanotic Additional comments: Trace lower extremity edema - Neurological Exam Neurological exam: Present: alert, CN II-XII intact, oriented X3, no focal deficits. Absent: pronater drift, facial droop, speech deficit - Skin Skin exam: Present: dry, intact, normal color, warm Internal Medicine: Result - Labs CBC & Chem 7: 12/02/17 03:43 12/02/17 03:43 Labs: Short CBC 12/02/17 Range/Units 03:43 WBC 7.9 (4.3-11.1) K/mcL Hgb 15.4 (12.9-16.9) g/dL Hct 45.9 (37.5-50.1) % Plt Count 190 (140-400) K/mcL Neutrophils # 5.2 (1.6-8.9) K/mcL BMP 12/02/17 03:43 Sodium 140 Potassium 3.4 L Chloride 100 Carbon Dioxide 28 BUN 21 Creatinine 0.98 Glucose 169 H Calcium 9.8 Cardiac Enzymes 12/02/17 12/02/17 Range/Units 03:43 09:22 Troponin I 0.13 H* 0.09 H* (< 0.04) ng/mL - ABG Interpretation ABG results: PT/INR, D-dimer PT 12.3 Seconds (9.4-12.1) H 12/01/17 21:37 Consult Discharge Plan - Plan [facility]errals: [facility] [Primary Care Provider] -
[2017-12-02] MEDS ORDERED: Melatonin 3 MG TABLET PO SCH (21:00)
[2017-12-03] MEDS: *HR* Heparin 5,000 UNIT/ML VIAL SQ SCH ×2 (05:08→17:28)
[2017-12-03] MEDS ORDERED: Regadenoson 0.4 MG/5 ML SYRINGE IVP ONE (06:12)
[2017-12-03 07:25] LABS: Hematocrit 44.2 % (37.5-50.1); Hemoglobin 14.4 g/dL (12.9-16.9); Mean Corpuscular HGB Conc 32.6 g/dL (31.6-35.5); Mean Corpuscular Hemoglobin 29.8 pg (28.0-33.3); Mean Corpuscular Volume 91.5 fL (83.0-100.0); Mean Platelet Volume 11.4 fL (9.4-12.4); Platelet Count 181 K/mcL (140-400); Red Blood Count 4.83 M/mcL (4.19-5.50); Red Cell Distribution Width 14.9 % (11.5-14.5)
[2017-12-03 07:36] LABS: BUN/Creatinine Ratio 25 (6-26); Blood Urea Nitrogen 26 mg/dL (8-23); Calcium 9.1 mg/dL (8.6-10.3); Carbon Dioxide 29 mEq/L (23-29); Chloride 101 mEq/L (98-107); Glucose 179 mg/dL (70-105); Magnesium 1.7 mg/dL (1.6-2.6); Osmolality,Calculated 303 (280-300); Potassium 3.7 mEq/L (3.5-5.1); Sodium 142 mEq/L (136-145); eGFR For African Americans > 60 (> 60); eGFR For Non-African Americans > 60 (> 60)
[2017-12-03] MEDS ORDERED: Dextrose Gel 15 GM/37.5 ML TUBE PO PRN ×2 (09:23)
[2017-12-03] MEDS ORDERED: D5% in Water 1,000 ML IVC PRN (09:23)
[2017-12-03] MEDS ORDERED: *HR* Dextrose 50 % in Water (Syg) 50 ML SYRINGE IVP PRN (09:23)
[2017-12-03] MEDS ORDERED: Insulin LISPRO 300 UNITS/3 ML VIAL SQ SCH (09:30)
[2017-12-03] MEDS: Insulin LISPRO 300 UNITS/3 ML VIAL SQ SCH ×2 (10:25→17:28)
[2017-12-03] MEDS: Gabapentin 400 MG CAPSULE PO SCH (11:24)
[2017-12-03] MEDS: Multivit/Ca/Min/Fe/FA 1 TAB TABLET PO SCH (11:24)
[2017-12-03] MEDS: Aspirin Enteric Coated 81 MG Tablet PO SCH (11:24)
[2017-12-03] MEDS: Magnesium Oxide 400 MG TABLET PO SCH (11:25)
[2017-12-03] MEDS: Furosemide 20 MG/2 ML VIAL IVP SCH (11:25)
[2017-12-03] MEDS: Cholecalciferol (D-3) 1,000 UNIT TABLET PO SCH (11:25)
[2017-12-03] MEDS: Sennosides/Docusate Sodium TABLET PO SCH (11:25)
[2017-12-03] MEDS: Loratadine 10 MG TABLET PO SCH (11:25)
[2017-12-03 11:29] LABS: Estimated Average Glucose 206 mg/dl; Hemoglobin A1C 8.8 %
--- NOTE | 2017-12-03 14:54 | Cardiology Progress Note ---
Date of Encounter: 12/03/17 Time of Encounter: 14:51 Assessment and Plan (1) Elevated troponin Current Visit: Yes Status: Acute Troponin 0.203 at [place], then 0.15, 0.13, 0.09 at [facility] in setting of A-Fib RVR and accelerated HTN. Suspect demand ischemia, nondiagnostic for ACS. Pt denies chest pain. Does endorse exertional dyspnea that has worsened recently. Chief complaints are weakness, recent frequent falls. TTE to evaluate structure and function--EF preserved 50-55%, normal wall motion. Stress test resulted--Negative for ischemia or infarct, but frequent ectopy noted. Continue ASA, Statin, BB. Will increase BB to 50mg BID. Cardiology signing off. Reconsult PRN. Follow-up with [facility] cardiology. (2) PAF (paroxysmal atrial fibrillation) Current Visit: Yes Status: Resolved Known hx of PAF. EKG yesterday evening SR. Now A-Fib, but currently rate controlled. EKG obtained at [facility] yesterday A-Fib RVR HR 120, but pt reports he had held all his meds, as instructed prior to echo. BB resumed. Frequent ectopy on stress test. Will increase Lopressor from 25 to 50mg BID. [id number] is 5 (Age, HTN, CVA). High CVA risk. Currently on ASA and Plavix. Suspect he is not on full anticoagulation due to high falls risk--reported multiple falls in recent weeks. However, this is not confirmed. Currently given his frequent falls, would recommend continuing ASA and Plavix only. Pt aware of increased CVA risk. (3) Hypertension Current Visit: Yes Status: Acute BP was 185/107 on presentation, now better controlled. Continue current antihypertensives and adjust as necessary. Increasing BB as above. Qualifiers: Hypertension type: essential hypertension Qualified Code(s): I10 - Essential (primary) hypertension Discussion w patient/family: The assessment and plan as outlined above was discussed with the patient and/or family members who expressed understanding and agreement. All questions were answered. Thank you for involving us in the care of your patient. Please call with any questions. I will discuss all the above with Dr. Monge and make changes as necessary. Subjective Principal diagnosis: Weakness, elevated troponin Interval history: No acute cardiac complaints. Stress test negative for ischemia or infarct. Echo EF preserved. Objective Vital Signs, Last 4 Hours Temp Pulse Resp BP Pulse Ox 12/03/17 11:51 98.0 F 88 14 142/72 96 Vital Signs Temp Pulse Resp BP Pulse Ox 12/03/17 11:51 98.0 F 88 14 142/72 96 12/03/17 09:05 98.3 F 82 16 129/82 94 12/03/17 04:53 98.5 F 88 16 111/73 94 12/02/17 23:41 99.2 F 89 16 149/79 95 12/02/17 19:26 98.5 F 94 16 152/94 96 12/02/17 15:35 97.6 F 93 18 161/84 98 Intake and Output 12/02/17 12/03/17 12/03/17 23:59 07:59 15:59 Output Total 225 / 225 100 / 100 Balance -225 / -225 -100 / -100 Output: Urine 100 / 100 100 / 100 Catheter 125 / 125 Other: Weight 100 kg Blood Glucose* 181 165 Patient Weight 12/03/17 23:59 Weight 100 kg General: Conversant, No Apparent Distress HEENT: Atraumatic, Normocephaly, Mucus Membranes Moist Neck: No JVD, Normal carotid pulses Cardiac: Other (irregular) Lungs: Other (diminished) Neuro: Alert and responsive, No focal deficits noted Abdomen: Soft, Non-Tender Skin: No rashes noted on visualized skin Musculoskeletal: No Chest Wall Tenderness Extremities: No Clubbing, No Cyanosis, No Edema, Normal Pulses Results 12/03/17 06:27 12/03/17 06:27 Lab Results 12/03/17 12/03/17 12/03/17 06:27 06:27 06:27 WBC 6.1 Hgb 14.4 Hct 44.2 Plt Count 181 Sodium 142 Potassium 3.7 Chloride 101 Carbon Dioxide 29 BUN 26 H Creatinine 1.02 Glucose 179 H Calcium 9.1 Magnesium 1.7 B-Natriuretic Peptide 36 Short CBC 12/03/17 Range/Units 06:27 WBC 6.1 (4.3-11.1) K/mcL Hgb 14.4 (12.9-16.9) g/dL Hct 44.2 (37.5-50.1) % Plt Count 181 (140-400) K/mcL BMP 12/03/17 Range/Units 06:27 Sodium 142 (136-145) mEq/L Potassium 3.7 (3.5-5.1) mEq/L Chloride 101 (98-107) mEq/L Carbon Dioxide 29 (23-29) mEq/L BUN 26 H (8-23) mg/dL Creatinine 1.02 (0.70-1.30) mg/dL Glucose 179 H (70-105) mg/dL Calcium 9.1 (8.6-10.3) mg/dL Active Medications Acetaminophen (Tylenol) 650 mg PO Q6HR PRN PRN Reason: Mild Pain/Fever Stop: 06/02/18 22:45 Hydrocodone Bitart/Acetaminophen ([place] 5-325 Mg) 1 tab PO Q6HR PRN PRN Reason: Moderate Pain Stop: 06/02/18 22:45 Aspirin (Aspirin Ec) 81 mg PO DAILY OLAYINKA Stop: 06/03/18 09:01 Last Admin: 12/03/17 11:24 Dose: 81 mg Atorvastatin Calcium (Lipitor) 40 mg PO HS OLAYINKA Stop: 06/03/18 21:01 Last Admin: 12/02/17 22:11 Dose: 40 mg Benzonatate (Tessalon) 100 mg PO TID PRN PRN Reason: Cough Stop: 06/03/18 00:20 Clopidogrel Bisulfate (Plavix) 75 mg PO DAILY OLAYINKA Stop: 06/03/18 09:01 Last Admin: 12/03/17 11:25 Dose: 75 mg Dextrose/Water (Dextrose 50% (Syg)) 25 ml IVP AD PRN PRN Reason: Hypoglycemia Stop: 06/04/18 09:24 Docusate Sodium (Colace) 100 mg PO BID PRN PRN Reason: Constipation Stop: 06/03/18 09:01 Duloxetine HCl (Cymbalta) 60 mg PO DAILY OLAYINKA Stop: 06/03/18 09:01 Last Admin: 12/03/17 11:25 Dose: 60 mg Ferrous Sulfate (Ferrous Sulfate) 325 mg PO DAILY OLAYINKA Stop: 06/03/18 09:01 Last Admin: 12/03/17 11:25 Dose: 325 mg Furosemide (Lasix) 20 mg IVP DAILY OLAYINKA Stop: 06/03/18 00:46 Last Admin: 12/03/17 11:25 Dose: 20 mg Gabapentin (Neurontin) 400 mg PO BID OLAYINKA Stop: 06/03/18 09:01 Last Admin: 12/03/17 11:24 Dose: 400 mg Glucagon (Glucagen) 1 mg IM ONCE PRN PRN Reason: Hypoglycemia Stop: 06/04/18 09:24 Glucose (Gluctose) 15 gm PO ONCE PRN PRN Reason: Hypoglycemia Stop: 06/04/18 09:24 Glucose (Gluctose) 30 gm PO ONCE PRN PRN Reason: Hypoglycemia Stop: 06/04/18 09:24 Heparin Sodium (Porcine) (Heparin) 5,000 unit SQ Q12HR OLAYINKA Stop: 06/03/18 06:01 Last Admin: 12/03/17 05:08 Dose: 5,000 unit Hydrocortisone (Proctosol-Hc) 1 appl RC BID PRN; Protocol PRN Reason: Hemorrhoids Stop: 06/03/18 00:20 Dextrose (Dextrose 5%) 1,000 mls @ 100 mls/hr IVC .Q10H PRN PRN Reason: HYPOGLYCEMIA Stop: 06/04/18 09:24 Insulin Human Lispro (Humalog) 0 units SQ HS OLAYINKA PRN Reason: Protocol Stop: 06/04/18 09:31 Last Admin: 12/03/17 12:55 Dose: Not Given Insulin Human Lispro (Humalog) 0 units SQ TIDAC OLAYINKA PRN Reason: Protocol Stop: 06/04/18 11:31 Last Admin: 12/03/17 10:25 Dose: 4 units Lisinopril (Zestril) 10 mg PO HS OLAYINKA PRN Reason: Protocol Stop: 06/03/18 21:01 Last Admin: 12/02/17 22:12 Dose: 10 mg Loratadine (Claritin) 10 mg PO DAILY OLAYINKA PRN Reason: Protocol Stop: 06/03/18 09:01 Last Admin: 12/03/17 11:25 Dose: 10 mg Magnesium Hydroxide (Milk Of Magnesia Conc) 10 ml PO HS PRN PRN Reason: CONSTIPATION Stop: 06/03/18 00:31 Magnesium Oxide (Mag-Ox) 800 mg PO BID OLAYINKA PRN Reason: Protocol Stop: 06/03/18 09:01 Last Admin: 12/03/17 11:25 Dose: 800 mg Melatonin (Melatonin) 9 mg PO HS OLAYINKA Stop: 06/03/18 21:01 Last Admin: 12/02/17 22:11 Dose: 9 mg Memantine (Namenda) 10 mg PO BID [facility] Stop: 06/03/18 09:01 Last Admin: 12/03/17 11:24 Dose: 10 mg Metoprolol Tartrate (Lopressor) 25 mg PO BID [facility] Stop: 06/03/18 09:01 Last Admin: 12/03/17 11:25 Dose: 25 mg Miconazole (Aloe [place] Antifungal Ointment) 1 appl TP DAILY PRN PRN Reason: Skin Protection Stop: 06/03/18 00:26 Multivitamins/Calcium (Thera M Plus) 1 tab PO DAILY OLAYINKA Stop: 06/03/18 09:01 Last Admin: 12/03/17 11:24 Dose: 1 tab Naloxone HCl (Narcan) 0.4 mg IVP Q2MIN PRN PRN Reason: SEE COMMENTS Stop: 06/02/18 22:45 Omeprazole (Prilosec) 20 mg PO QPM [facility] Stop: 06/03/18 18:01 Last Admin: 12/02/17 18:00 Dose: 20 mg Ondansetron HCl (Zofran) 4 mg IVP Q8HR PRN PRN Reason: Nausea And Vomiting Stop: 06/02/18 22:45 Pharmacy Profile Note (Patient Taking Own Medication) 1 each TP BID PRN PRN Reason: Pain Promethazine HCl (Phenergan) 12.5 mg IVP Q6HR PRN PRN Reason: Nausea And Vomiting Stop: 06/02/18 22:45 Senna/Docusate Sodium (Senna Plus) 2 each PO BID OLAYINKA PRN Reason: Protocol Stop: 06/03/18 09:01 Last Admin: 12/03/17 11:25 Dose: 2 each Vitamin D (Vitamin D) 1,000 unit PO DAILY [facility] Stop: 06/03/18 09:01 Last Admin: 12/03/17 11:25 Dose: 1,000 unit - Imaging and Cardiology Stress Test: report reviewed Echo: report reviewed - EKG Interpretation EKG results cardiology: other (12 hr tele AVG HR 95, PAF) Consult Discharge Plan - Plan [facility]errals: [facility] [Primary Care Provider] -
--- NOTE | 2017-12-03 15:46 | Discharge Summary ---
- NOTES TO OUTPATIENT PROVIDER Notes to Outpatient Provider: Cardiac stress test and echocardiogram performed. Cardiology saw the patient. Recommend follow-up with [place] cardiology. Orders not resulted at time of discharge: Pending orders 12/02/17 13:11 NM jacek perf SPECT multi [NM] Routine Date of Encounter: 12/03/17 Time of Encounter: 15:44 - Discharge Diagnosis (1) Hypertension Priority: Primary Status: Chronic Comments: Blood pressure now with better control. Continue current antihypertensive. Beta angel dose was increased. Qualifiers: Hypertension type: essential hypertension Qualified Code(s): I10 - Essential (primary) hypertension (2) NSTEMI (non-ST elevated myocardial infarction) Priority: Primary Status: Acute Comments: Troponin 0.203 at the [place] been 0.1 5.13 and 0.09 in the setting of A. fib with rapid ventricular response and accelerated hypertension. Suspect demand ischemia, nondiagnostic for ACS. Patient did have a stress test which was negative for ischemia or infarct. (3) H/O: CVA (cerebrovascular accident) Priority: Primary Status: Chronic (4) Physical deconditioning Priority: Primary Status: Chronic (5) CAD (coronary artery disease) Priority: Primary Status: Chronic Comments: Stress test resulted in negative for ischemia or infarct but frequent ectopy was noted. Continue aspirin, statin, beta angel which has been increased to 50 mg twice a day by cardiology Follow-up with [facility] cardiology Qualifiers: Coronary Disease-Associated Artery/Lesion type: [place] artery [place] vs. transplanted heart: [place] heart Associated angina: without angina Qualified Code(s): I25.10 - Atherosclerotic heart disease of [place] coronary artery without angina pectoris (6) DM2 (diabetes mellitus, type 2) Priority: Primary Status: Chronic Comments: resume home regime Qualifiers: Diabetes mellitus skilled nursing insulin use: without skilled nursing use Diabetes mellitus complication status: without complication Qualified Code(s): E11.9 - Type 2 diabetes mellitus without complications (7) GERD (gastroesophageal reflux disease) Priority: Primary Status: Chronic Comments: continue home medication Qualifiers: Esophagitis presence: without esophagitis Qualified Code(s): K21.9 - Gastro -esophageal reflux disease without esophagitis (8) ELMORE (dyspnea on exertion) Priority: Primary Status: Chronic Comments: patient on room air (9) Hypomagnesemia Priority: Primary Status: Acute Comments: replaced (10) PAF (paroxysmal atrial fibrillation) Priority: Primary Status: Chronic Comments: Known history of proximal atrial fibrillation. EKG on admission showed sinus rhythm. Now in atrial fib but rate controlled. EKG at [place] yesterday was A. fib with rapid rapid ventricular response with a heart rate 120s but the patient had reported he had held all his meds as instructed to prior to obtaining an echocardiogram. Patient had frequent ectopy on his stress test. Lopressor increased from 25-50 mg twice a day Currently on aspirin and Plavix and not on full anticoagulation secondary to high fall risk. Patient reports multiple falls in recent weeks. (11) Falls frequently Priority: Primary Status: Chronic Comments: Follow-up precautions (12) Weakness Priority: Primary Status: Chronic Comments: PT OT at home with current [facility] Hospital course: Mr. Moon is a 82 year old male who has a history of DVT, diabetes mellitus type 2, GERD, hyperlipidemia, hypertension, and stroke with bilateral lower extremity weakness disease the cane or walker to ambulate. He presented to the [place] urgent care with generalized weakness and dyspnea on exertion. He had stated he was falling over the last 2-3 weeks so his visiting nurses suggested he go to the urgent care for further evaluation. He was found to have a troponin of 0.203 and was transferred to [place] [facility]. He has a known history of proximal atrial fibrillation as well. He has [facility]. Troponins were trended at 0.15, 0.13, 0.09 in the setting of A. fib with rapid ventricular response and accelerated hypertension. He had not taken his beta angel secondary to having an echocardiogram completed. He had a stress test completed which showed no infarct or ischemia. He had a echo that showed a preserved EF of 50-55% and normal wall motion. His beta angel was increased to 50 mg twice a day and he was deemed ready for discharge. His blood pressure was controlled on his present medication regime. He is currently in a sinus rhythm, his atrial fib was at a controlled rate within noted here. PT OT evaluation recommends home PT OT which has been ordered. He will resume his home medications, he has no questions and is ready for discharge. Discharge discussed with: patient, nurse, case management - Time Spent with Patient Total time spent providing and/or coordinating discharge services: Less than 30 minutes - Discharge Medications Prescriptions: Metoprolol [Lopressor] 50 mg PO BID #60 tablet Home Medications: Aspirin Enteric Coated [Aspirin EC] 81 mg PO DAILY 12/01/17 [History] Atorvastatin [Lipitor] 40 mg PO HS 12/01/17 [History] Benzonatate [Tessalon] 100 mg PO TID PRN 12/01/17 [History] Cholecalciferol (D-3) [Vitamin D] 3,000 unit PO DAILY 12/01/17 [History] Clopidogrel [Plavix] 75 mg PO DAILY 12/01/17 [History] Diclofenac Sodium [Voltaren] 4 gm TP BID PRN 12/01/17 [History] Duloxetine HCl [Cymbalta] 60 mg PO DAILY 12/01/17 [History] Ferrous Sulfate 325 mg PO DAILY 12/01/17 [History] Gabapentin [Neurontin] 400 mg PO BID 12/01/17 [History] Hydrocortisone Rectal CRM [Proctosol-Hc] 1 appl RC BID PRN 12/01/17 [History] Lisinopril [Zestril] 10 mg PO HS 12/01/17 [History] Loratadine [Claritin] 10 mg PO DAILY 12/01/17 [History] Magnesium Hydroxide [Milk of Magnesia] 2,400 mg PO AD 12/01/17 [History] Magnesium Oxide [Mag-Ox] 800 mg PO BID 12/01/17 [History] Melatonin [Melatin] 9 mg PO HS 12/01/17 [History] Memantine HCl 10 mg PO BID 12/01/17 [History] Metformin HCl [Metformin HCl ER] 500 mg PO DAILY 12/01/17 [History] Miconazole Nitrate [Aloe [place]] 1 appl TP DAILY PRN 12/01/17 [History] Multivitamin-Min/Iron/FA/Vit K [Multi-Day Plus Minerals Tablet] 1 each PO DAILY 12/01/17 [History] OxyCODONE Immed Rel [Roxicodone 5 MG] 5 mg PO DAILY PRN 12/01/17 [History] Pantoprazole Sodium [Protonix] 40 mg PO QPM 12/01/17 [History] Sennosides/Docusate Sodium [Senna Plus] 2 each PO BID 12/01/17 [History] Sod Chloride/B-6/Zinc Acet/Ca [Wound Cleanser] 5 - 8 spray IR DAILY PRN [History] Vitamin E/Aloe Vera [Wound Gel Dressing] 1 appl TP DAILY PRN 12/01/17 [History] Evette Alexis [Preparation H] 1 each TP DAILY 12/01/17 [History] hydroCHLOROthiazide [Hydrochlorothiazide] 12.5 mg PO DAILY 12/01/17 [History] Metoprolol [Lopressor] 50 mg PO BID #60 tablet 12/03/17 [Rx] Allergies/Adverse Reactions: 3 Allergy/AdvReac Type Severity Reaction Status Date / Time No Known Allergies Allergy Verified 12/01/17 20:33 Date of admission: 12/01/17 22:57 [facility] physician: [facility] Consults: 12/02/17 09:06 Consult to Cardiology [CONS] Routine Comment: Consulting Provider: Cardiology Crissy Reason for Consult: NSTEMI Time Notified: 09:06 Call Completed: Yes 12/02/17 11:11 Consult to Occupational Therapy [CONS] Routine Comment: Evaluate, develop and implement POC Reason for Consult: weakness,falls Does patient have active BEDREST order?: No Is patient medically & hemodynamically stable?: Yes Consult to Physical Therapy [CONS] Routine Comment: Evaluate, develop and implement POC Reason for Consult: weakness, falls Does patient have active BEDREST order?: No Is patient medically & hemodynamically stable?: Yes 12/02/17 18:44 Consult to Protective Services Officer [CONS] Routine Reason for SW Consult: possible placement Discharging clinician: Najma Sylvester Anticipated date of discharge: 12/03/17 - Constitutional Vitals: Temp Pulse Resp BP Pulse Ox 98.0 F 88 14 142/72 96 12/03/17 11:51 12/03/17 11:51 12/03/17 11:51 12/03/17 11:51 12/03/17 11:51 General appearance: Present: cooperative, A&O X 3, pleasant, obese, answers questions appropriately - Head Head exam: Present: atraumatic, normocephalic - Eye Eye exam: Present: PERRL, conjuntiva pink, sclera anicteric Pupils: Present: PERRL - Neck Neck exam general surgery: Present: supple, trachea midline. Absent: lymphadenopathy - Respiratory Respiratory exam: Present: CTAB. Absent: accessory muscle use, rales, rhonchi, wheezes - Cardiovascular Cardiovascular exam: Present: RRR, +S1, +S2. Absent: diastolic murmur, gallop, rubs, systolic murmur - GI/Abdominal GI/Abdominal exam: Present: normal bowel sounds, soft, no peritoneal signs. Absent: distended, tenderness - Extremities Exam Extremities exam: Present: pedal edema, warm, radial pulses palpable and symmetrical. Absent: calf tenderness, cyanotic Additional comments: trace lower ext edema - Neurological Exam Neurological exam: Present: alert, CN II-XII intact, oriented X3, no focal deficits. Absent: pronater drift, facial droop, speech deficit - Skin Skin exam: Present: dry, intact, normal color, warm - Patient Status Disposition: Home Health Service Condition: Fair Functional capacity at discharge: uses cane/walker Overall status at discharge: patient is progressing back to baseline - Discharge Instructions [facility] With: [facility] [Primary Care Provider] - - Diet and Activity Activity: ambulate only with your walker, as per physical therapy Diet: diabetic diet, low fat, low cholesterol
[2017-12-03 15:53] VITALS: BP 135/65
--- NOTE | 2017-12-04 13:34 | Electrocardiograph Report ---
[address] [place], [place] [address] Test Date: 2017-12-01 Pat Name: [place]ro [place] Department: 102 Room: 3B52 Gender: M Business Services Assistant: Leia : [id number] Requested By: Cristel Rojas Order Number: [id number] Reading MD: Moni Ruiz Measurements Intervals Ennice Rate: 96 P: 12 PA: 245 QRS: -64 QRSD: 127 T: 76 QT: 394 QTc: 447 Interpretive Statements SINUS RHYTHM WITH FIRST DEGREE AV BLOCK WITH OCCASIONAL VENTRICULAR PREMATURE COMPLEXES RIGHT BUNDLE BRANCH BLOCK LEFT ANTERIOR FASCICULAR BLOCK LEFT VENTRICULAR HYPERTROPHY AND ST-T CHANGE [VOLTAGE CRITERIA PLUS ST/T ABNORMALITY] Electronically Signed On 12-04-2017 13:32:46 EDT by Moni Ruiz
== END 2017-12-03 20:45 | disposition home health service (06) | DRG 281 ==
LOC: 3BNU 19:00 → EMEROO 19:00 → 3BNU 23:22
PROVIDERS: ADMIT Internal Medicine; ATTEND Registered Nurse